=== PATIENT | male | born 1995 | race Caucasian/White ===

== ENCOUNTER → 2016-07-07 | Outpatient (REF) | payer SELFPAY ==
[2016-07-07 14:14] LABS: NON PROGRESSIVE MOTILITY (c) 6 %; PROGRESSIVE MOTILITY (a) 3 % (>=32); TOTAL MOTILITY 9 % (>=40)
[2016-07-07 14:15] LABS: % NORMAL FORMS < 4 % (>=4); IMMOTILITY 91 %; SPERM# 68.9 M/Ejac (33-46); TOTAL FUNCTIONAL 0.2 M/Ejac.; TOTAL PROGRESSIVE SPERM 2.4 M/Ejac.
== END ==
LOC: M LAB REF 14:10
PROVIDERS: ATTEND Obstetrics & Gynecology
DX: Z30.8 Encounter for other contraceptive management (principal)

== ENCOUNTER 2016-10-17 21:01 | Emergency (ER) | payer OTHER ==
[~2016-10-17] VITALS: Ht 185.4 cm; Wt 76.2 kg
[2016-10-17] MEDS ORDERED: EXCETAB81 PO (21:12)
[2016-10-17] MEDS ORDERED: METOCLOPRAMIDE INJ 10MG/2ML VIAL (J2765) IV ONE (21:30)
[2016-10-17] MEDS ORDERED: NS 1,000 ML IV ONE (21:30)
--- NOTE | 2016-10-17 22:20 | REPUSA ---
CT of the head Clinical history: Headache. Technique: Multiple axial CT images were obtained through the head without administration of contrast . Comparison: None. Findings: The ventricles and sulci are symmetric bilaterally. There is no evidence of acute hemorrhag e or infarct. There is no midline shift, mass effect, or extra-axial fluid collection. The osseous st ructures are unremarkable. The visualized paranasal sinuses and mastoid air cells are clear. Impression: Negative study.
[2016-10-17 22:38] LABS: BASO % 0.3 % (0.0-1.0); EOS # 0.1 K/mm3 (0.0-0.50); EOS % 1.7 % (0.0-3.0); LARGE UNSTAINED CELL # 0.1 K/mm3 (0.0-0.4); LARGE UNSTAINED CELL % 2.2 % (0.0-4.0); LYMPH # 2.1 K/mm3 (1.5-6.5); LYMPH % 39.5 % (24.0-44.0); MEAN CORPUSCULAR HEMOGLOBIN 31.9 pg (27.0-33.0); MEAN CORPUSCULAR HGB CONC 35.6 g/dl (32.0-36.5); MEAN CORPUSCULAR VOLUME 89.7 fl (80.0-96.0); MONO # 0.4 K/mm3 (0.0-0.8); MONO % 7.9 % (0.0-5.0); NEUTROPHILS # 2.4 K/mm3 (1.8-7.7); NEUTROPHILS % 48.4 % (36.0-66.0); PLATELET COUNT, AUTOMATED 161 k/mm3 (150-450); RED CELL DISTRIBUTION WIDTH 12.3 % (11.5-14.5)
[2016-10-17 22:58] LABS: ANION GAP 7 MEQ/L (8-16); BLOOD UREA NITROGEN 14 MG/DL (7-18); CALCIUM LEVEL 8.8 MG/DL (8.5-10.1); CARBON DIOXIDE LEVEL 29 MEQ/L (21-32); CHLORIDE LEVEL 102 MEQ/L (98-107); CREATININE FOR GFR 1.13 MG/DL (0.70-1.30); GLUCOSE, FASTING 91 MG/DL (70-105); POTASSIUM SERUM 3.5 MEQ/L (3.5-5.1); SODIUM LEVEL 138 MEQ/L (136-145)
[2016-10-17] MEDS ORDERED: ZOFR4TAB3 PO (23:17)
[2016-10-17 23:34] VITALS: BP 114/57
== END 2016-10-17 23:48 | disposition home or self-care (01) ==
LOC: M ED 21:51
DX: R51 Headache (principal); J30.81 Allergic rhinitis due to animal (cat) (dog) hair and dander
CPT/HCPCS: 70450; 80048; 85025; 96374; 99283; J2765

== ENCOUNTER → 2018-01-15 | Outpatient (REF) | payer OTHER | LOC: M SFHCLERA 19:55 | DX: J02.9 Acute pharyngitis, unspecified (principal) ==